=== PATIENT | male | born 2000 | race Caucasian/White ===

== ENCOUNTER 2025-03-08 14:41 | Emergency (ER) | payer OTHER, SELFPAY ==
[2025-03-08 14:41] VITALS: BP 117/73; PULSE 91; RESP 16; TEMP 36.9; O2SAT 99; BMI 20.7
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
[2025-03-08] MEDS: Lidocaine/Epi/Tetracaine 50 ML 1 APPLIC TOPICAL (15:25)
[2025-03-08] MEDS: Lidocaine 1% /Epi 1:100 (20ml) 20 ML Vial 5 ML INFILT (15:26)
[2025-03-08 16:05] VITALS: BP 117/73; PULSE 91; RESP 16; TEMP 36.9; O2SAT 99
== END 2025-03-08 16:15 | disposition home or self-care (01) ==
PROVIDERS: Emergency Provider Emergency Medicine; PCP Nurse Practitioner Family; Visit Provider Emergency Medicine
DX: S01.81XA Laceration without foreign body of other part of head, initial encounter (principal); F41.9 Anxiety disorder, unspecified; Z79.899 Other long term (current) drug therapy; W51.XXXA Accidental striking against or bumped into by another person, initial encounter; Z23 Encounter for immunization
CPT/HCPCS: 12013; 90715; 99282; A4216